=== PATIENT | male | born 1990 | race Caucasian/White ===

== ENCOUNTER 2021-03-24 13:10 | Emergency (ER) | payer OTHER ==
[~2021-03-24] VITALS: Ht 167.6 cm; Wt 80.0 kg
[2021-03-24 13:35] VITALS: BP 138/97
== END 2021-03-24 18:46 | disposition left against medical advice (07) ==
LOC: ER 13:12
DX: Z53.21 Procedure and treatment not carried out due to patient leaving prior to being seen by health care provider (principal)